=== PATIENT | male | born 1960 | race Caucasian/White ===

== ENCOUNTER 2021-01-13 13:39 | Emergency (ER) | payer OTHER, BC ==
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
== END 2021-01-13 15:00 | disposition home or self-care (01) ==
LOC: VM.ED 13:39
DX: S01.81XA Laceration without foreign body of other part of head, initial encounter (principal); Z88.0 Allergy status to penicillin; W22.09XA Striking against other stationary object, initial encounter
CPT/HCPCS: 12005; 12016; 71045; 99283; 99283-25